=== PATIENT | female | born 1995 | race Two or more races ===

== ENCOUNTER 2018-04-26 11:14 | Outpatient (CLI) | payer OTHER | END 2018-04-26 14:05 | disposition home or self-care (01) | LOC: M LDO 11:14 | DX: O47.1 False labor at or after 37 completed weeks of gestation (principal); Z3A.38 38 weeks gestation of pregnancy | CPT/HCPCS: 59025 ==

== ENCOUNTER 2018-04-27 03:18 | Inpatient (IN) | payer OTHER ==
[2018-04-27] MEDS ORDERED: LR 1,000 ML IV (04:10)
[2018-04-27] MEDS ORDERED: OXYTOCIN 30 UNITS IN 0.9% NaCl 500ML IV BAG (J2590) As Ordered (04:27)
[2018-04-27 04:29] LABS: HEMATOCRIT 35.3 % (36.0-47.0); HEMOGLOBIN 11.8 g/dl (12.0-15.5); MEAN CORPUSCULAR HEMOGLOBIN 27.3 pg (27.0-33.0); MEAN CORPUSCULAR HGB CONC 33.4 g/dl (32.0-36.5); MEAN CORPUSCULAR VOLUME 81.7 fl (80.0-96.0); PLATELET COUNT, AUTOMATED 246 10^3/uL (150-450); RED BLOOD COUNT 4.32 10^6/uL (4.00-5.40); RED CELL DISTRIBUTION WIDTH 13.4 % (11.5-14.5); WHITE BLOOD COUNT 10.1 10^3/uL (4.0-10.0)
[2018-04-27] MEDS: LACTATED RINGER'S 1000 ML IV (04:31)
[2018-04-27] MEDS ORDERED: FENTANYL 2MCG/ML ROPIVACAINE 0.2% IN 0.9% NACL 200ML IVBAG As Ordered (05:23)
[2018-04-27 06:51] LABS: CHLAMYDIA DNA AMPLIFICATION NEGATIVE (NEGATIVE); GC DNA AMPLIFICATION NEGATIVE (NEGATIVE)
[2018-04-27] MEDS ORDERED: FENTANYL/ROPIVACAINE/NACL BAG 200 ML EPIDURAL (07:45)
[2018-04-27] MEDS ORDERED: diphenhydrAMINE INJ 50MG/ML VIAL (J1200) IV (07:45)
[2018-04-27] MEDS ORDERED: LACTATED RINGER'S 1000 ML IV (07:45)
[2018-04-27] MEDS ORDERED: ePHEDrine SULFATE 25 MG/5 ML(5MG/ML) SYRINGE IV (07:45)
[2018-04-27] MEDS ORDERED: ONDANSETRON 4MG/2ML VIAL (J2405) IV (07:45)
[2018-04-27] MEDS ORDERED: EPIDURAL COMMENT XX (07:45)
[2018-04-27] MEDS ORDERED: NALOXONE INJ 0.4 MG/1 ML VIAL (J2310) IV (07:45)
[2018-04-27] MEDS ORDERED: REFRIGERATOR IV KEYS XX (07:45)
[2018-04-27] MEDS ORDERED: EPIDURAL/PCA KEYS XX (07:45)
[2018-04-27 09:34] LABS: HBSAG L&D NEGATIVE (NEGATIVE)
[2018-04-27] MEDS ORDERED: OXYTOCIN DRIP 30 UNITS in APPROPRIATE DILUENT 1 EA IV (10:07)
[2018-04-27] MEDS: OXYTOCIN DRIP 30 UNITS in APPROPRIATE DILUENT 1 EA IV (15:31)
[2018-04-27] MEDS: PRENATAL VITAMINS CHEWABLE TABLET PO (15:42)
[2018-04-27] MEDS ORDERED: DIBUCAINE 1% OINTMENT 30GM TOP (15:45)
[2018-04-27] MEDS ORDERED: ACETAMINOPHEN TAB 650MG DOSE (2X325MG) PO (15:45)
[2018-04-27] MEDS ORDERED: METOCLOPRAMIDE INJ 10MG/2ML VIAL (J2765) IV (15:45)
[2018-04-27] MEDS: DOCUSATE SODIUM 100 MG CAP PO (20:08)
[2018-04-27] MEDS: IBUPROFEN 800 MG TAB PO (20:16)
[2018-04-28] MEDS: DOCUSATE SODIUM 100 MG CAP PO ×2 (08:53→21:00)
[2018-04-28] MEDS: PRENATAL VITAMINS CHEWABLE TABLET PO (08:53)
[2018-04-28] MEDS: RHOGAM 300 MCG (1500 IU) INJ (J2790) IM (11:34)
[2018-04-28] MEDS: MEASLES,MUMPS,RUBELLA VACCINE INJ (MMR-II) (90707) SC (11:34)
[2018-04-28] MEDS: IBUPROFEN 800 MG TAB PO (17:10)
[2018-04-29] MEDS: PRENATAL VITAMINS CHEWABLE TABLET PO (09:00)
[2018-04-29] MEDS: DOCUSATE SODIUM 100 MG CAP PO (11:35)
[2018-04-29] MEDS: INFLUENZA QUADRIVALENT PF VACCINE 0.5ML SYRINGE (90686) IM (11:36)
[2018-04-29] MEDS: ADACEL/BOOSTRIX VACCINE (DIPHTH/PERTUSS/ACELL/TETANUS)0.5ML SYR (90715) IM (11:36)
== END 2018-04-29 13:40 | disposition home or self-care (01) | DRG 775 ==
LOC: M LDO 03:18 → M LDI 03:59 → M OBS 12:49
PROVIDERS: Obstetrics & Gynecology
PROC: 10E0XZZ Delivery of Products of Conception, External Approach (ICD-10-PCS; principal; 2018-04-27)
PROC: 0HQ9XZZ Repair Perineum Skin, External Approach (ICD-10-PCS; 2018-04-27)
DX: O70.0 First degree perineal laceration during delivery (principal); Z3A.38 38 weeks gestation of pregnancy; Z37.0 Single live birth